=== PATIENT | female | born 1960 | race African-American/Black ===

== ENCOUNTER 2020-08-24 23:13 | Emergency (ER) | payer BC, SELFPAY ==
[2020-08-24 23:21] VITALS: BP 139/90; PULSE 111; RESP 18; TEMP 36.7; O2SAT 95
--- NOTE | 2020-08-25 00:22 | ED.GENADULT ---
HPI - General Adult General Chief complaint: Skin/Abscess/Foreign Body Stated complaint: food bolus Time Seen by Provider: 08/24/20 23:36 History of Present Illness HPI narrative: Patient is a 59-year-old female who presents with ED esophageal obstruction. Patient was eating [place] beef earlier in the evening and has not been able to swallow since then. She has regurgitation of water. No aspiration or difficulty breathing. Feels discomfort in her neck. No chest pain or chest pressure. Has not had similar symptoms in the past. No recent heartburn. Related Data Allergies Allergy/AdvReac Type Severity Reaction Status Date / Time No Known Allergies Allergy Unknown Unverified 10/23/18 10:53 Review of Systems Review of Systems: All systems reviewed & are unremarkable except as noted in HPI and below ENT: Reports dysphagia and Denies sore throat Cardiovascular: Cardiovascular: Denies chest pain, Denies rapid heart rate and Denies radiating jaw, neck or arm pain Respiratory: Respiratory: Denies cough and Denies dyspnea Gastrointestinal: Gastrointestinal: Denies abdominal pain, Denies nausea and Denies vomiting PMFSH Past Medical History Medical History (Updated 08/25/20 @ 00:26 by Sami Guajardo MD) Healthy female adult Surgical History Surgical History (Updated 08/25/20 @ 00:24 by Sami Guajardo MD) History of section Social History Social History (Updated 08/25/20 @ 00:25 by Sami Guajardo MD) Smoking status: Never smoker Exam Narrative: Exam Narrative: GENERAL: Well-appearing, well-nourished, and in no acute distress. HEAD: Normocephalic, atraumatic. ENT: Mucous membranes moist. Frequent spitting. CHEST: Clear to auscultation. No respiratory distress. HEART: Regular rate and rhythm. Normal peripheral pulses. EXTREMITIES: Normal range of motion. No edema. NEURO: Alert and oriented x3. PSYCH: Normal mood and affect. Course Course Emergency Course: With 2 sips of Pepsi and some jumping patient was able to resolve her esophageal obstruction. She was given Protonix and educated on discharge and treatment plan. Patient verbalized understanding. Vital Signs Vital signs: Vital Signs Temperature 98.1 F 08/24/20 23:21 Pulse Rate 111 H 08/24/20 23:21 Respiratory Rate 18 08/24/20 23:21 Blood Pressure 139/90 08/24/20 23:21 Pulse Oximetry 95 08/24/20 23:21 Temperature 98.1 F 08/24/20 23:21 Pulse Rate 111 H 08/24/20 23:21 Respiratory Rate 18 08/24/20 23:21 Blood Pressure 139/90 08/24/20 23:21 Pulse Oximetry 95 08/24/20 23:21 Medical Decision Making Vital Signs Vital Signs: Vital Signs Temperature 98.1 F 08/24/20 23:21 Pulse Rate 111 H 08/24/20 23:21 Respiratory Rate 18 08/24/20 23:21 Blood Pressure 139/90 08/24/20 23:21 Pulse Oximetry 95 08/24/20 23:21 Temperature 98.1 F 08/24/20 23:21 Pulse Rate 111 H 08/24/20 23:21 Respiratory Rate 18 08/24/20 23:21 Blood Pressure 139/90 08/24/20 23:21 Pulse Oximetry 95 08/24/20 23:21 Discharge Plan Discharge Clinical Impression: Food impaction of esophagus Patient Disposition: Home, Self-Care Condition: Stable Instructions: Esophageal Foreign Body (ED) Additional Instructions: Return the ER if you cannot swallow, you cannot breathe, you have chest pain or shortness of breath, you have additional concerns. Make sure to eat in small bites and make sure to fully chew your food. Esophageal obstructions occur most commonly with fatty tough meats. You will likely require referral to a GI physician so please follow-up with your primary care physician. Take Protonix twice a day to help with your symptoms. Prescriptions: New pantoprazole 40 mg tablet,delayed release (DR/EC) 40 mg PO BID Qty: 28 RF: 0 Follow-up/Referrals: Brayden Rosado MD [Physician] - 1 Week UNKNOWN,DOCTOR [Primary Care Provider] -
[2020-08-25] MEDS: PANTOPRAZOLE 40 MG TABLET PO (00:35)
[2020-08-25 00:42] VITALS: BP 138/72; PULSE 65; RESP 18; O2SAT 100
== END 2020-08-25 00:43 | disposition home or self-care (01) ==
PROVIDERS: Emergency Provider Emergency Medicine
DX: T18.128A Food in esophagus causing other injury, initial encounter (principal); X58.XXXA Exposure to other specified factors, initial encounter
CPT/HCPCS: 99283; A9270